=== PATIENT | male | born 1990 | race Caucasian/White ===

== ENCOUNTER 2021-07-02 23:09 | Emergency (ER) | payer OTHER, BC ==
[2021-07-03] MEDS ORDERED: Diphtheria,Pertussis(Acell),Tetanus Vaccine 0.5 ML Syringe IM ONE (00:14)
[2021-07-03] MEDS ORDERED: Lidocaine 1% with EPINEPHrine 1:100,000 10 ML MDV INJECT ONE (00:14)
[2021-07-03] MEDS ORDERED: Lidocaine 1% with EPINEPHrine 1:100,000 20 ML MDV ONE (00:18)
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
== END 2021-07-03 01:05 | disposition home or self-care (01) ==
LOC: MW.ED 23:09
DX: S01.81XA Laceration without foreign body of other part of head, initial encounter (principal); Z23 Encounter for immunization; W22.8XXA Striking against or struck by other objects, initial encounter
CPT/HCPCS: 12011; 90471; 90715; 99282-25

== ENCOUNTER 2022-05-11 00:05 | Emergency (ER) | payer BC, OTHER ==
[2022-05-11] MEDS ORDERED: Acetaminophen/oxyCODONE 325-10 MG Tab PO ONE (00:34)
[2022-05-11] MEDS ORDERED: Ibuprofen 600 MG Tab PO ONE (00:34)
== END 2022-05-11 01:05 | disposition home or self-care (01) ==
LOC: MW.ED 00:05
DX: M25.512 Pain in left shoulder (principal); V89.2XXA Person injured in unspecified motor-vehicle accident, traffic, initial encounter; Y92.410 Unspecified street and highway as the place of occurrence of the external cause
CPT/HCPCS: 99283; A9270

== ENCOUNTER 2022-08-02 04:30 | Emergency (ER) | payer OTHER ==
[2022-08-02] MEDS ORDERED: Ondansetron 4 MG/2 ML SDV IVPUSH ONE (04:55)
[2022-08-02] MEDS ORDERED: Alum Hydro/Mag Hydro/Simeth XS 15 ML, Lidocaine 2% 5 ML PO ONE ×2 (04:55)
[2022-08-02] MEDS ORDERED: Sodium Chloride 0.9% 1,000 ML IV ONE (04:55)
[2022-08-02] MEDS ORDERED: Morphine 4 MG/ML Syringe IVPUSH ONE (04:55)
[2022-08-02 05:33] LABS: CARBON DIOXIDE,CO2 25.8 mmol/L (21.0-32.0); POTASSIUM,K 3.9 mmol/L (3.5-5.1)
[2022-08-02] MEDS ORDERED: Iopamidol 755 MG/ML 500 ML Multipack Bottle IVPUSH STA (06:20)
== END 2022-08-02 07:45 | disposition home or self-care (01) ==
LOC: MW.ED 04:30
DX: R10.13 Epigastric pain (principal)
CPT/HCPCS: 36415; 74177; 80053; 83605; 83690; 85025; 96361; 96374; 96375; 99284; A9270; J2270; J2405; J7030; Q9967

== ENCOUNTER 2023-03-09 12:54 | Emergency (ER) | payer OTHER | END 2023-03-09 13:50 | disposition home or self-care (01) | LOC: MW.ED 12:54 | DX: K04.7 Periapical abscess without sinus (principal); J45.909 Unspecified asthma, uncomplicated | CPT/HCPCS: 99282; 99283 ==

== ENCOUNTER 2023-05-12 16:52 | Emergency (ER) | payer OTHER ==
[2023-05-12] MEDS ORDERED: Penicillin V Potassium 500 MG Tab PO STA (18:12)
[2023-05-12] MEDS ORDERED: Acetaminophen/HYDROcodone 325-5 MG Tab PO ONE (18:12)
[2023-05-12] MEDS ORDERED: Acetaminophen/HYDROcodone 325-5 MG Tab ONE (18:22)
== END 2023-05-12 18:27 | disposition home or self-care (01) ==
LOC: MW.ED 16:52
DX: K04.7 Periapical abscess without sinus (principal); J45.909 Unspecified asthma, uncomplicated; Z72.0 Tobacco use
CPT/HCPCS: 99282; A9270; 99283

== ENCOUNTER 2025-05-26 22:42 | Emergency (ER) | payer SELFPAY | END 2025-05-27 01:47 | disposition home or self-care (01) | LOC: MW.ED 22:42 | DX: L03.113 Cellulitis of right upper limb (principal); F17.200 Nicotine dependence, unspecified, uncomplicated; Z79.899 Other long term (current) drug therapy | CPT/HCPCS: 99283; A9270 ==